=== PATIENT | male | born 1960 | race Caucasian/White ===

== ENCOUNTER 2021-06-15 02:06 | Day surgery (SDC) | payer OTHER, SELFPAY ==
[2021-06-07 13:46] VITALS: BMI 29.1
[2021-06-15 06:45] VITALS: BP 144/97; PULSE 82; RESP 18; TEMP 36.4; O2SAT 98; BMI 28.5
[2021-06-15] MEDS: LACTATED RINGERS 1,000 ML 150 ML IV CONT (07:06)
--- NOTE | 2021-06-15 07:20 | WPDGICN ---
Assessment and Plan Assessment and plan (1) Screen for colon cancer: Code(s): Z12.11 - Encounter for screening for malignant neoplasm of colon Status: Acute Assessment and Plan: Patient presents for screening colonoscopy appears to be at average risk for colon polyps. GI Consult Note Consult date/time: 06/15/21 07:20 HPI: Jose Cruz Quijano is a 60 year old male Presents for screening colonoscopy. Patient reports his current weight appetite bowel movements are normal. He denies abdominal pain. He has had no blood in his stools. Bowel habits are regular. Family history is noncontributory. Patient desires neoplasia screening. Review of Systems Review of Systems: All systems reviewed & are unremarkable except as noted in HPI and below PMFSH Past Medical History Medical History BMI 30.0-30.9,adult Hypomagnesemia Iliotibial band syndrome Screen for colon cancer Screening for lipid disorders Screening for prostate cancer Surgical History Surgical History History of foot surgery Social History Social History Smoking status: Never smoker Second hand tobacco smoke exposure: No Alcohol intake: current Drinks per week: 2 Substance use type: does not use Living arrangements: with family Spiritual care concerns: No Meds Home Medications and Allergies Home Medications Medication Instructions Recorded Confirmed Type lisinopril 20 1 tablet PO BID #180 tablet 01/06/21 06/15/21 Rx mg-hydrochlorothiazide 25 mg tablet lorazepam 1 mg tablet 1 mg PO DAILY PRN 30 Days #30 01/26/21 06/15/21 Rx tablet omeprazole 40 mg capsule,delayed 40 mg PO DAILY 90 Days #90 cap 01/26/21 06/15/21 Rx release pregabalin 100 mg capsule 100 mg PO BID 90 Days #180 cap 01/26/21 06/15/21 Rx meloxicam 15 mg tablet 15 mg PO DAILY #30 tablet 06/06/21 06/15/21 Rx Allergies Allergy/AdvReac Type Severity Reaction Status Date / Time No Known Allergies Allergy Verified 06/15/21 06:53 Vital Signs Vital Signs - 24 hr 06/15/21 06:45 Temperature 97.5 F L Pulse Rate 82 Respiratory Rate 18 Blood Pressure 144/97 H Pulse Oximetry 98 Exam Narrative: Physical exam reveals patient be alert. Vital signs stable. HEENT exam is unremarkable. Patient is anicteric. Lungs are clear to auscultation and percussion. Heart is without murmur or extra sounds. Abdominal exam bowel sounds are present soft nontender with no hepatosplenomegaly. Digital external rectal exam is normal.
--- NOTE | 2021-06-15 08:02 | WPDANESEPPF ---
Anes - Initial Pre Proc Eval Procedure: Operation Date: 06/15/21 08:00 Proposed Procedures p Screening Colonoscopy - Denis Abdi MD Date/Time: 06/15/21 08:02 Surgeon: Denis Abdi MD Pre Op Diagnosis: neoplasm screening Patient Data Age: 60 Gender: M Height: 1.83 m Weight: 95.3 kg Last Vital Signs Temp 97.5 F L 06/15/21 06:45 Pulse 82 06/15/21 06:45 Resp 18 06/15/21 06:45 BP 144/97 H 06/15/21 06:45 Pulse Ox 98 06/15/21 06:45 Allergies Allergy/AdvReac Type Severity Reaction Status Date / Time No Known Allergies Allergy Verified 06/15/21 06:53 Home Medications Medication Instructions Recorded Confirmed Type lisinopril 20 1 tablet PO BID #180 tablet 01/06/21 06/15/21 Rx mg-hydrochlorothiazide 25 mg tablet lorazepam 1 mg tablet 1 mg PO DAILY PRN 30 Days #30 01/26/21 06/15/21 Rx tablet omeprazole 40 mg capsule,delayed 40 mg PO DAILY 90 Days #90 cap 01/26/21 06/15/21 Rx release pregabalin 100 mg capsule 100 mg PO BID 90 Days #180 cap 01/26/21 06/15/21 Rx meloxicam 15 mg tablet 15 mg PO DAILY #30 tablet 06/06/21 06/15/21 Rx Patient hx anesthesia problems: none Family hx anesthesia problems: none PMFSH Past Medical History Medical History BMI 30.0-30.9,adult Hypomagnesemia Iliotibial band syndrome Screen for colon cancer Screening for lipid disorders Screening for prostate cancer Surgical History Surgical History History of foot surgery Social History Social History Smoking status: Never smoker Second hand tobacco smoke exposure: No Alcohol intake: current Drinks per week: 2 Substance use type: does not use Living arrangements: with family Spiritual care concerns: No Anes - Eval Final PreProcedure Day of Procedure 06/15/21 08:02 Patient weight: overweight Heart: regular rate and rhythm Lungs: clear to auscultation Airway: Mallampati scale class II Neurological: alert and oriented Last oral intake: >/= 8 hours ASA classification: II Emergent: no Anesthetic plan: proceed Anesthesia type and monitoring: general GIVS and standard monitoring Informed Consent: The patient's anesthetic plan and its attendant risks and benefits were discussed with the patient/family/POA. Questions were solicited and answers provided to the satisfaction of the patient/family/POA.
[2021-06-15] MEDS: SIMETHICONE ORAL SUSPENSION 20 MG/0.3 ML 30 ML BOTTLE 0.6 ML IRRIGATION (08:10)
[2021-06-15 08:18] VITALS: BP 123/83; PULSE 82; RESP 19; O2SAT 100
[2021-06-15 08:28] VITALS: BP 118/84; PULSE 83; RESP 19; O2SAT 100
[2021-06-15 08:38] VITALS: BP 123/87; PULSE 83; RESP 19; O2SAT 100
== END 2021-06-15 08:50 | disposition home or self-care (01) ==
PROVIDERS: PCP Family Medicine; Visit Provider Internal Medicine Gastroenterology
PROC: 0DJD8ZZ Inspection of Lower Intestinal Tract, Via Natural or Artificial Opening Endoscopic (ICD-10-PCS; CPT 45378; principal; 2021-06-15 08:00)
DX: Z12.11 Encounter for screening for malignant neoplasm of colon (principal); K64.8 Other hemorrhoids; M76.30 Iliotibial band syndrome, unspecified leg
CPT/HCPCS: 45378; J2001; J2704; J7120

== ENCOUNTER → 2021-11-09 10:56 | Outpatient (REF) | payer OTHER, SELFPAY | LOC: ANHLAB 10:56 | PROVIDERS: PCP Family Medicine; Visit Provider Nurse Practitioner | DX: L57.0 Actinic keratosis (principal) | CPT/HCPCS: 88305 ==

== ENCOUNTER → 2021-12-13 10:04 | Outpatient (CLI) | payer OTHER, SELFPAY ==
--- NOTE | ~2021-12-13 | XR_ITS ---
EXAMINATION: XR chest 2V DATE: 12/13/2021 10:23 INDICATION: Cough, unspecified. TECHNIQUE: Frontal and lateral views of the chest were obtained on 3 radiographs. COMPARISON: None. FINDINGS: The chest demonstrates clear lungs without pneumonia, pleural effusion, or pneumothorax. Th e heart size is normal. IMPRESSION: 1. No acute cardiopulmonary disease. Reviewed, dictated and finalized at location A. SORTER
== END ==
PROVIDERS: Visit Provider Nurse Practitioner Family
DX: R05.9 Cough, unspecified (principal)
CPT/HCPCS: 71046

== ENCOUNTER → 2022-02-01 09:44 | Outpatient (CLI) | payer OTHER, SELFPAY ==
--- NOTE | ~2022-02-01 | MR_ITS ---
EXAMINATION: MR lumbar spine wo con EXAM DATE: 02/01/2022 10:14 INDICATION: Radiculopathy. Low back pain and right leg numbness. TECHNIQUE: Multi-sequential, multiplanar MR images of the lumbar spine were obtained without contrast . Sagittal T1, T2, T2 fat saturation images. Axial T2 weighted images. Comparison is made to prior examination from 2017. Correlation also made to a MRI abdomen examination from 2003. FINDINGS: On the localizing sequence there is evidence of a large lobulated right liver lobe mass, li ayana the same mass on 2004 MRI, report of which is not available. There have been significant improve ment in scan technique, but prior study demonstrates what appears to be a homogeneous enhancement exc ept for central scar, suggesting focal nodular hyperplasia. This does not appear appreciably changed compared to that study which is consistent with benign histology. There is mild to moderate disc disease L2-3 and L4-5. There is 4 mm anterolisthesis L4 on L5. The manasa tebral bodies are otherwise aligned. Mild disc disease T11-L2. The conus medullaris terminates at the L1/2 level and has normal signal intensity and morphology. There are no focal marrow signal abnorma lities suspicious for malignancy or acute fracture. Level by level evaluation: T12-L1: Tiny central disc protrusion. Facet arthropathy: Mild. Neural foraminal stenosis: No stenosis. Central canal stenosis: No stenosis. L1-L2: Disc does not extend beyond the endplate margin. Facet arthropathy: Mild to moderate. Neural foraminal stenosis: No stenosis. Central canal stenosis: No stenosis. L2-L3: There is a moderate diffuse disc bulge. Facet arthropathy: Moderate. Neural foraminal stenosis: Moderate left, mild to moderate right. Central canal stenosis: Moderate. L3-L4: There is a mild diffuse disc bulge. Facet arthropathy: Moderate. Neural foraminal stenosis: Mild to moderate bilateral. Central canal stenosis: Mild. L4-L5: There is a moderate diffuse disc bulge. Facet arthropathy: Severe . Ligamentum flavum enlargement. Neural foraminal stenosis: Moderate to severe bilateral, right more than left. Central canal stenosis: Moderate (more than L2-3). L5-S1: There is a mild diffuse disc bulge. Facet arthropathy: Moderate. Neural foraminal stenosis: Mild to moderate left, mild right. Central canal stenosis: Mild. IMPRESSION: 1. L4-5 rate 1 anterolisthesis, moderate to severe right greater than left neural foraminal stenosis . Moderate central canal stenosis. 2. Large right liver lobe mass likely benign and unchanged compared to 2003. Reviewed, dictated and finalized at location A. IMPRESSION: 1. L4-5 rate 1 anterolisthesis, moderate to severe right greater than left sergo ral foraminal stenosis. Moderate central canal stenosis. 2. Large right liver lobe mass likely benign and unchanged compared to 2003.
== END ==
PROVIDERS: PCP Family Medicine; Visit Provider Nurse Practitioner Family
DX: M47.25 Other spondylosis with radiculopathy, thoracolumbar region (principal); M48.05 Spinal stenosis, thoracolumbar region; M47.817 Spondylosis without myelopathy or radiculopathy, lumbosacral region; M48.07 Spinal stenosis, lumbosacral region
CPT/HCPCS: 72148

== ENCOUNTER → 2022-03-10 10:23 | Outpatient (CLI) | payer OTHER, SELFPAY ==
--- NOTE | ~2022-03-10 | XR_ITS ---
XR knee RT 3V DATE: 03/10/2022 10:40 INDICATION: Right knee pain TECHNIQUE: AP, lateral and sunrise views COMPARISON: None FINDINGS: There is slight periarticular spurring of the patella consistent with mild osteoarthritis. Medial and lateral compartment joint spaces are well preserved. No fracture or dislocation or joint e ffusion. No radiopaque intra-articular loose body or chondrocalcinosis. No periosteal reaction or bon e destruction. IMPRESSION: Mild patellofemoral osteoarthritis Reviewed, dictated and finalized at location B.
== END ==
PROVIDERS: PCP Family Medicine; Visit Provider Nurse Practitioner Family
DX: M17.11 Unilateral primary osteoarthritis, right knee (principal)
CPT/HCPCS: 73562

== ENCOUNTER → 2022-03-14 09:32 | Outpatient (CLI) | payer OTHER, SELFPAY ==
--- NOTE | ~2022-03-14 | XR_ITS ---
EXAMINATION: XR shoulder RT min 2V DATE: 03/14/2022 10:19 INDICATION: Right shoulder pain TECHNIQUE: AP internally and externally rotated, AP oblique externally rotated and axillary views of the right shoulder were obtained. COMPARISON: None FINDINGS: Normal alignment at the right shoulder. No fracture. Mild glenohumeral osteoarthritis with mild nonu niform joint space narrowing and small marginal osteophytes about the humeral head. Moderate acromioc lavicular osteoarthritis. Soft tissues are unremarkable. Right lung is clear. IMPRESSION: Mild right glenohumeral and moderate acromioclavicular osteoarthritis. Reviewed, dictated and finalized at location A.
== END ==
PROVIDERS: PCP Family Medicine; Visit Provider Nurse Practitioner Family
DX: M19.011 Primary osteoarthritis, right shoulder (principal)
CPT/HCPCS: 73030

== ENCOUNTER 2022-03-24 10:39 | Outpatient (CLI) | payer OTHER, SELFPAY ==
--- NOTE | ~2022-03-24 | MR_ITS ---
EXAMINATION: MR knee RT wo con DATE: 03/24/2022 11:22 INDICATION: Chronic instability and lateral sided right knee pain post injury 2 weeks prior TECHNIQUE: Magnetic resonance imaging (MRI) of the right knee was performed without intravenous contr ast. Sequences included coronal PD-weighted FSE, coronal PD-weighted FS FSE, sagittal T2-weighted FS E, sagittal PD-weighted FS FSE and axial PD weighted fat saturated FSE. COMPARISON: None. FINDINGS: Medial compartment: Complex tear at the posterior body and posterior horn of the medial meniscus which includes both radi al and longitudinal horizontal tear planes. Shallow chondral ulceration and partial-thickness fissuri ng along the lateral half of the anterior to central weightbearing medial femoral condyle. Cartilage at the medial tibial plateau is normal. Lateral compartment: Lateral meniscus is normal. Articular cartilage is normal. Patellofemoral compartment: Chondral fissuring involving up to 50% above the cartilage thickness at the medial patellar facet, ap ical ridge and medial side of the lateral facet. Shallow chondral ulceration at the caudal half of th e trochlear groove. Deep chondral fissuring without degenerative subchondral changes at the inferior aspect of the medial trochlea. Ligaments and tendons: Anterior and posterior cruciate ligaments are normal. There is mild thickening of the proximal medial collateral ligament without increased fluid signal consistent with scarring related to chronic sprai n. The fibular collateral ligament is normal. Small heterotopic ossicle at the distal as previously o therwise normal patellar tendon which could be sequela of either chronic enthesopathy or total to Osg ood-Schlatter's disease. Quadriceps tendon is normal. The visualized medial and lateral hamstring ten dons as well as the iliotibial band are normal. Fluid: Physiologic amount of fluid in the joint space. No loose osteochondral bodies identified. Nonloculate d fluid tracking along the posterior margin of the medial head of the gastrocnemius muscle likely monica ginating from a ruptured Abdul's cyst. Osseous/other: Normal marrow signal. No fracture or pathologic marrow replacing process. IMPRESSION: 1. Complex medial meniscal tear. 2. Mild osteoarthritis with moderate grade chondromalacia in both the medial and patellofemoral aleah rtments. 3. Likely ruptured Abdul's cyst with nonloculated fluid tracking caudally along the periphery of the medial head of the gastrocnemius. Reviewed, dictated and finalized at location B. IMPRESSION: 1. Complex medial meniscal tear. 2. Mild osteoarthritis with moderate grade chondromalacia in both the medial an d patellofemoral compartments. 3. Likely ruptured Abdul's cyst with nonloculated fluid tracking caudally along the periphery of the medial head of the gastrocnemius.
== END 2022-03-24 10:40 | disposition home or self-care (01) ==
PROVIDERS: PCP Family Medicine; Visit Provider Nurse Practitioner Family
DX: S80.911A Unspecified superficial injury of right knee, initial encounter (principal); M23.51 Chronic instability of knee, right knee; S83.241A Other tear of medial meniscus, current injury, right knee, initial encounter; M17.11 Unilateral primary osteoarthritis, right knee; M94.261 Chondromalacia, right knee
CPT/HCPCS: 73721

== ENCOUNTER → 2022-05-31 09:34 | Outpatient (CLI) | payer OTHER, SELFPAY ==
--- NOTE | ~2022-05-31 | XR_ITS ---
EXAMINATION: XR knee LT 2V DATE: 05/31/2022 10:01 INDICATION: Left knee pain. TECHNIQUE: 2 views of left knee were obtained. COMPARISON: None. FINDINGS: Bone alignment is normal. No fracture. There is mild tricompartmental osteoarthritis charac terized by tiny osteophytes. No joint space narrowing. No knee joint effusion. IMPRESSION: 1. Mild left knee osteoarthritis. Reviewed, dictated and finalized at location A.
== END ==
PROVIDERS: PCP Family Medicine; Visit Provider Nurse Practitioner Family
DX: M17.12 Unilateral primary osteoarthritis, left knee (principal)
CPT/HCPCS: 73560

== ENCOUNTER → 2022-07-29 08:34 | Outpatient (CLI) | payer OTHER, SELFPAY ==
--- NOTE | ~2022-07-29 | MR_ITS ---
EXAMINATION: MR knee LT wo con DATE: 07/29/2022 09:10 INDICATION: Left knee pain TECHNIQUE: Magnetic resonance imaging (MRI) of the left knee was performed without intravenous contra st. Sequences included coronal PD-weighted FSE, coronal PD-weighted FS FSE, sagittal T2-weighted FSE , sagittal PD-weighted FS FSE and axial PD weighted fat saturated FSE. COMPARISON: None. FINDINGS: Medial compartment: Medial meniscus is normal. Partial thickness chondral fissuring involving up to 50% the cartilage thi ckness at the lateral side of the anterior weightbearing medial femoral condyle. Lateral compartment: Lateral meniscus is normal. Cartilage signal heterogeneity suggesting partial thickness fissuring may ng the posterior margin of the lateral tibial plateau. Remaining cartilage appears normal. Patellofemoral compartment: Deep chondral fissuring without degenerative subchondral changes involving the medial patellar facet and apical ridge. Cortical irregularity of a small central osteophyte along a sagittally oriented reg ion of deep chondral ulceration extending craniocaudally across the central aspect of the lateral tro chlea. Ligaments and tendons: Anterior and posterior cruciate ligaments are normal. The medial collateral ligament and fibular kari ateral ligament complex are normal. The extensor mechanism is normal. The visualized medial and later al hamstring tendons as well as the iliotibial band are normal. Fluid: Physiologic amount of fluid in the joint space. No loose osteochondral bodies identified. Osseous/other: Bone alignment is normal. No fracture or pathologic marrow replacing process. Small focus of suscepti bility artifact along the skin surface at the anteromedial aspect of the knee. IMPRESSION: 1. High-grade chondromalacia along the lateral trochlea. Less severe and moderate grade chondromalaci a at the patella, anterior weightbearing medial femoral condyle and posterior lateral tibial plateau. Reviewed, dictated and finalized at location A. IMPRESSION: 1. High-grade chondromalacia along the lateral trochlea. Less severe and modera te grade chondromalacia at the patella, anterior weightbearing medial femoral c ondyle and posterior lateral tibial plateau.
== END ==
PROVIDERS: PCP Family Medicine; Visit Provider Nurse Practitioner Family
DX: M25.562 Pain in left knee (principal); M94.262 Chondromalacia, left knee
CPT/HCPCS: 73721

== ENCOUNTER 2022-08-27 10:48 | Emergency (ER) | payer OTHER, SELFPAY ==
[2022-08-27 11:00] VITALS: BP 139/91; PULSE 80; RESP 18; TEMP 37; O2SAT 100; O2SAT 99
--- NOTE | 2022-08-27 11:06 | ED.ALLEREA ---
HPI - Allergic Reaction General Chief complaint: Allergic Reaction Stated complaint: allergic reaction Time Seen by Provider: 08/27/22 10:50 History of Present Illness HPI narrative: 62-year-old male history of asthma, hypertension, GERD, anxiety presents to the emergency room after being stung by an insect on his left cheek. Patient states that he began experiencing difficulty swallowing and shortness of breath. Prior to arrival in the ER, patient took a Benadryl and Claritin and states his symptoms began to resolve. Related Data Allergies Allergy/AdvReac Type Severity Reaction Status Date / Time No Known Allergies Allergy Verified 08/27/22 11:35 Review of Systems Review of Systems: CONSTITUTIONAL: Denies fever, chills, or sweats. EYES: Denies visual changes, redness, or discharge. ENT: Denies rhinorrhea, congestion, sore throat, or otalgia. CARDIOVASCULAR: Denies chest pain, palpitations, or edema. RESPIRATORY: Reports dyspnea. GASTROINTESTINAL: Denies abdominal pain, nausea, vomiting, or diarrhea. GENITOURINARY: Denies dysuria or hematuria. SKIN: Reports rash or itching. MUSCULOSKELETAL: Denies back pain, joint pain, or myalgia. NEUROLOGIC: Denies headache, numbness, dizziness, or weakness. PSYCHIATRIC: Denies anxiety or depression. [facility] Past Medical History Medical History Actinic keratosis BMI 29.0-29.9,adult BMI 30.0-30.9,adult Bronchitis Chondromalacia, knee Chronic instability of knee, right knee Cough History of SCC (squamous cell carcinoma) of skin HTN (hypertension) Hypomagnesemia Iliotibial band syndrome Left knee DJD Leukocytopenia Medial meniscus tear Right knee injury Right knee pain Screen for colon cancer Screening for lipid disorders Screening for prostate cancer Sebaceous hyperplasia Skin cancer screening Unspecified superficial injury of right knee, initial encounter Surgical History Surgical History History of foot surgery Family History Family History Father Diabetes mellitus Mother COPD (chronic obstructive pulmonary disease) Sibling No problems noted. 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 HEAD: Normocephalic, atraumatic. EYES: Conjunctivae normal, PERRLA and EOMI. ENT: External nose normal, Nares clear, no rhinorrhea or epistaxis. Mucous membranes moist. Oropharynx without tonsillar hypertrophy exudate or other lesions. NECK: Supple. CHEST: Inspiratory wheezing HEART: Regular rate and rhythm. No murmur heard. Normal peripheral pulses. EXTREMITIES: Normal range of motion. No edema. No clubbing or cyanosis SKIN: Single puncture rhiannon to left cheek with surrounding mild erythema NEURO: No focal deficits. Alert and oriented x3. MAEW. CN's II-XI intact bilaterally, normal gait PSYCH: Cooperative. Normal mood and affect. Course Vital Signs Vital signs: Vital Signs Temperature 37.0 C 08/27/22 11:00 Pulse Rate 80 08/27/22 11:00 Respiratory Rate 18 08/27/22 11:00 Blood Pressure 139/91 H 08/27/22 11:00 Pulse Oximetry 100 08/27/22 11:00 Oxygen Delivery Room Air 08/27/22 11:00 Temperature 37.0 C 08/27/22 11:00 Pulse Rate 81 08/27/22 11:42 Respiratory Rate 18 08/27/22 11:42 Blood Pressure 139/91 H 08/27/22 11
[2022-08-27 11:15] VITALS: PULSE 80; RESP 18
[2022-08-27] MEDS: ALBUTEROL SULFATE NEB 2.5 MG/3 ML INH INHALATION (11:16)
[2022-08-27] MEDS: IPRATROPIUM BR 0.02% INH SOLN 0.5 MG/2.5 ML VIAL INHALATION (11:16)
[2022-08-27] MEDS: methylPREDNISolone SOD SUCC 125 MG VIAL IV PUSH (11:18)
[2022-08-27] MEDS: FAMOTIDINE 20 MG/2 ML VIAL IV PUSH (11:19)
[2022-08-27] MEDS: diphenhydrAMINE HCl INJ 50 MG/ML VIAL 25 MG IV PUSH (11:19)
[2022-08-27 11:26] VITALS: PULSE 82; RESP 18
[2022-08-27 11:42] VITALS: PULSE 81; RESP 18; O2SAT 100
[2022-08-27 12:05] VITALS: BP 134/89; PULSE 82; RESP 18; O2SAT 99
== END 2022-08-27 12:05 | disposition home or self-care (01) ==
PROVIDERS: Emergency Provider Nurse Practitioner Family; PCP Family Medicine
DX: T63.481A Toxic effect of venom of other arthropod, accidental (unintentional), initial encounter (principal); J45.909 Unspecified asthma, uncomplicated; I10 Essential (primary) hypertension; K21.9 Gastro-esophageal reflux disease without esophagitis; Z85.828 Personal history of other malignant neoplasm of skin; M17.12 Unilateral primary osteoarthritis, left knee
CPT/HCPCS: 94640; 96374; 96375; 99284; J1200; J2930

== ENCOUNTER 2022-10-11 11:51 | Emergency (ER) | payer OTHER, SELFPAY ==
[2022-10-11] VITALS (8 sets, daily range): BP systolic 147–178; BP diastolic 94–102; PULSE 82–97; RESP 13–18; TEMP 36.4; O2SAT 99–100
--- NOTE | ~2022-10-11 | XR_ITS ---
Clinical Indication: Chest pain PA and lateral views of the chest: Comparison: 12/13/2021 Findings: The lungs are clear, without evidence of focal consolidation or pleural effusion. Cardiome diastinal silhouette is within normal limits. Bones and soft tissues are unremarkable. Impression: Normal chest. Reviewed, dictated and finalized at location [] [facility] Impression: Normal chest.
--- NOTE | 2022-10-11 16:08 | ECG_ITS ---
Measurements Intervals [place] Rate: 85 P: 30 FL: 167 QRS: 4 QRSD: 81 T: 30 QT: 366 QTc: 436 Interpretive Statements SINUS RHYTHM COMPARED TO ECG 11/30/2018 09:46:45 NO SIGNIFICANT CHANGES Electronically Signed On 10-11-2022 16:39:51 [employer] by Nataly Washington M.D.
[2022-10-11 17:21] LABS: Basophils Percent Auto 0.6 % (0.2-1.2); Eosinophils Absolute Auto 0.1 K/mm3 (0-0.3); Eosinophils Percent Auto 1.3 % (0-4.4); Hematocrit 42.8 % (42.0-52.0); Immature Granulocyte Absolute 0.03 K/mm3 (0.00-0.031); Immature Granulocyte Percent A 0.6 % (0-0.5); Lymphocytes Absolute Auto 1.31 K/mm3 (0.9-3.2); Lymphocytes Percent Auto 27.3 % (18.3-44.2); Mean Corpuscular Hemoglobin 30.1 pg (26-34); Mean Corpuscular Volume 85.9 fl (80-100); Monocytes Absolute Auto 0.4 K/mm3 (0.1-0.6); Monocytes Percent Auto 8.6 % (2.6-8.5); Neutrophils Percent Auto 61.6 % (45.5-73.1); Platelet Count Result 209 k/mm3 (150-375); Red Blood Count 4.98 M/mm3 (4.6-6.20); Red Cell Distribution Width 12.3 % (11.5-14.5); White Blood Count 4.8 K/mm3 (4.5-10.0)
[2022-10-11 17:33] LABS: Alanine Aminotransferase 32 U/L (6-50); Albumin Level 4.9 g/dL (3.5-5.1); Alkaline Phosphatase 76 U/L (38-126); Anion Gap 9 mmol/L (8-16); Aspartate Amino Transferase 34 U/L (17-59); Bilirubin,Total 1.3 mg/dL (0.2-1.3); Blood Urea Nitrogen 16 mg/dL (9-20); Calcium 9.5 mg/dL (8.4-10.2); Carbon Dioxide 28 mmol/L (22-30); Chloride 102 mmol/L (98-107); Estimated CRCL calculation 90 ml/min; Estimated Glomerular Filt Rate > 60; Glucose 101 mg/dL (65-110); Potassium 3.5 mmol/L (3.4-5.0); Sodium 139 mmol/L (137-145)
[2022-10-11 17:37] LABS: INR 1.1; Partial Thromboplastin Time 25.3 SECONDS (22.3-36.8); Prothrombin Time 13.6 Seconds (11.1-14.7)
[2022-10-11 17:45] LABS: Troponin I < 0.012 ng/mL (0.000-0.034)
--- NOTE | 2022-10-11 18:04 | ED.ANXIETY ---
HPI - Anxiety General Chief Complaint: Anxiety Stated Complaint: panic attack - hx of anxiety Time Seen by Provider: 10/11/22 15:59 History of Present Illness HPI narrative: Patient is a 62-year-old male who presents ER with chest pain and anxiety attack. Patient reports he is going to [facility] to get labs drawn due to an annual physical and hypertension. He started getting anxious on the way there. His anxiety increased he developed left-sided chest pain that was nonradiating. No history of heart disease but does want to have his heart evaluated. No diaphoresis or nausea. No exertional component. Symptoms resolved after taking Ativan. Related Data Allergies Allergy/AdvReac Type Severity Reaction Status Date / Time No Known Allergies Allergy Verified 10/11/22 11:52 Review of Systems Review of Systems: All systems reviewed & are unremarkable except as noted in HPI and below Constitutional: Constitutional: Denies chills, Denies fatigue and Denies fever(s) ENT: Denies nasal congestion and Denies sore throat Cardiovascular: Cardiovascular: Reports chest pain, Denies rapid heart rate and Denies radiating jaw, neck or arm pain Respiratory: Respiratory: Denies cough, Denies dyspnea and Denies wheezing Gastrointestinal: Gastrointestinal: Denies abdominal pain, Denies nausea and Denies vomiting Psychiatric: Psychiatric: Reports anxiety PMFSH Past Medical History Medical History Actinic keratosis BMI 29.0-29.9,adult BMI 30.0-30.9,adult Bronchitis Chondromalacia, knee Chronic instability of knee, right knee Cough History of SCC (squamous cell carcinoma) of skin HTN (hypertension) Hypomagnesemia Iliotibial band syndrome Left knee DJD Leukocytopenia Medial meniscus tear Right knee injury Right knee pain Screen for colon cancer Screening for lipid disorders Screening for prostate cancer Sebaceous hyperplasia Skin cancer screening Unspecified superficial injury of right knee, initial encounter Surgical History Surgical History History of foot surgery Family History Family History (Updated 10/10/22 @ 10:55 by Yenny Bailey CMA) Father Diabetes mellitus Mother COPD (chronic obstructive pulmonary disease) Sibling Sleep apnea Other Hypertension Social History Social History (Updated 10/10/22 @ 10:55 by Yenny Bailey CMA) Smoking status: Never smoker Second hand tobacco smoke exposure: Yes Alcohol intake: current Drinks per week: 4 Alcohol use details: Socially Substance use: never Substance use type: does not use Lack of Transportation: No Lack of Food: Never True Current Housing: I Have Housing Concerned About Future Housing: No Difficulty Paying Gas/Electric Bills: No Difficulty Paying for Meds: No Currently Unemployed: No Education: Master's Degree or Higher Difficulty w/ Childcare or Family Care: No 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 HEAD: Normocephalic, atraumatic. ENT: Mucous membranes moist. CHEST: Clear to auscultation. No respiratory distress. HEART: Regular rate and rhythm. Normal peripheral pulses. ABDOMEN: Soft, nontender, nondistended. EXTREMITIES: Normal range of motion. No edema. SKIN: Warm, dry, no rash. NEURO: Alert and oriented x3. PSYCH: Normal mood and affect. Course Course Emergency Course: Informed of results. Resting comfortably. Discharge home. EKG/troponin/chest x-ray normal. Symptoms felt to be related to anxiety. Vital Signs Vital signs: Vital Signs Temperature 97.6 F 10/11/22 11:57 Pulse Rate 82 10/11/22 11:57 Respiratory Rate 18 10/11/22 11:57 Blood Pressure 178/100
== END 2022-10-11 18:51 | disposition home or self-care (01) ==
PROVIDERS: Emergency Provider Emergency Medicine; PCP Family Medicine
DX: F41.1 Generalized anxiety disorder (principal); F17.210 Nicotine dependence, cigarettes, uncomplicated; I10 Essential (primary) hypertension
CPT/HCPCS: 36415; 71046; 80053; 84484; 85025; 85610; 85730; 93005; 99284

== ENCOUNTER 2022-11-15 13:42 | Outpatient (NON) | payer OTHER, SELFPAY | END 2022-11-15 13:43 | disposition home or self-care (01) | PROVIDERS: PCP Family Medicine; Visit Provider Nurse Practitioner | DX: L81.4 Other melanin hyperpigmentation (principal); L82.1 Other seborrheic keratosis | CPT/HCPCS: 88305 ==

== ENCOUNTER 2023-01-10 08:35 | Outpatient (CLI) | payer OTHER, SELFPAY ==
--- NOTE | 2023-01-12 17:53 | WPDHOMESLEEP ---
Sleep Study - Home Unattended Date of Study: 01/10/23 Ordering Provider: Dimitrios Tan MD Interpreting Provider: Tiana Samano MD Home Sleep Study Type: Watch PAT Height: 1.83 m Weight: 96.162 kg Body Mass Index: 28.7 Neck Circumference (inches): 16.5 [place]: 4 Reason for Sleep Study Non-restorative sleep, frequent night time awakenings. Sleep History Jose Cruz De La Paz is a 62-year-old man who complains that he cannot get a full night of sleep. Several years ago he had a sleep study that showed obstructive sleep apnea. He tried PAP therapy but did not like the hoses and other equipment so he stopped using it. Two of his brothers use CPAP. He rarely awakens from sleep feeling short of breath. He frequently awakens at night with heartburn, belching or coughing. He occasionally snores. He rarely snores loudly enough that others complain. He rarely has trouble sleeping with a cold. He does not wake up gasping for breath at night. He rarely has breathing problems at night observed by others. He rarely sweats excessively at night. He does not notice his heart pounding or beating irregularly at night. He does not fall asleep during the day, does not fall asleep involuntarily or while driving. He does not have loss of muscle tone with strong emotion. He does not have daytime difficulties due to excessive sleepiness. 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 He does not have paralysis on waking or falling asleep. He rarely has vivid dreamlike scenes on waking or falling asleep. He does not feel afraid to go to sleep. He does not have nightmares. He occasionally remembers his dreams. He occasionally has racing thoughts. He rarely feels sad or depressed. He occasionally has anxiety. He rarely has muscular tension. He does not notice parts of his body jerking. He does not kick at night. He occasionally has crawling aching feelings in his legs. He occasionally has leg pain at night. Does not have morning jaw pain. He rarely grinds his teeth during sleep. He occasionally is bothered by pain during the day. He frequently is awakened by pain at night. He frequently wakes up feeling stiff in the morning. He occasionally wakes up with sore achy muscles and pain in the neck and spine. He takes sedatives. He has insomnia. Normal bedtime is 10:00 to 11:00 pm, taking 30-60 minutes to fall asleep. He typically wakes 2-3 times at night for 20-30 minutes. He will use the bathroom, takes melatonin or Advil. His normal wake up time is between 6 and 7:30 a.m.. He keeps the same schedule on weekends. He generally does not take naps in the afternoon or evening. A short nap lasting 10 or 15 minutes may be refreshing. He is usually drowsy for an hour after waking. He feels better in the morning compared to other times of day. Habits: Never smoked tobacco. Caffeine 2-3 cups in morning. Alcohol once a week. No recreational substances. [facility] Past Medical History Medical History (Updated 01/12/23 @ 18:57 by Tiana Samano MD) Actinic keratosis BMI 29.0-29.9,adult BMI 30.0-30.9,adult Bronchitis Chondromalacia, knee Chronic instability of knee, right knee Cough Degenerative joint disease of knee History of SCC (squamous cell carcinoma) of skin HTN (hypertension) Hypomagnesemia Iliotibial band syndrome Left knee DJD Leukocytopenia Medial meniscus tear Obstructive sleep apnea Right knee injury Right knee pain Screen for colon cancer Screening for lipid disorders Screening for prostate cancer Sebaceous hyperplasia Skin cancer screening Unspecified superficial injury of right knee, initial encounter Surgical History Surgical History History of foot surgery Family History Family History Father Diabetes mellitus Mother COPD (chronic obstructive pulmonary disease) Sibling Sleep apnea Other Hy
[2023-01-12 19:04] VITALS: BMI 28.7
== END 2023-01-11 09:28 | disposition home or self-care (01) ==
LOC: ANHCSM 08:36
PROVIDERS: PCP Family Medicine; Visit Provider Family Medicine
DX: G47.33 Obstructive sleep apnea (adult) (pediatric) (principal)
CPT/HCPCS: 95800

== ENCOUNTER 2023-06-28 01:05 | Day surgery (SDC) | payer OTHER, SELFPAY ==
--- NOTE | 2023-06-23 11:35 | PC.NURSE ---
Report to the Outpatient Waiting Room, entrance under the green pavilion located off [facility], at time __1130 on date _06/28/23 . Planned Procedure Time: __1330 . Time changes happen often and if your time is changed the preop area will call you the afternoon before. - You and your visitor will be asked to self-screen and do not enter if you have any COVID symptoms. - A mask is optional within the hospital at this time. Patients may have clear liquids (water, carbonated beverages, clear teas, apple juice) until 3 hours prior to surgery with a maximum of 20 ounces. - No food from midnight until time of surgery - Infants may have breast milk until 4 hours before surgery, infant formula 6 hours prior to surgery. - Children will be allowed to drink immediately following surgery. If applicable, please bring a bottle or sippy cup to assist with drinking. Juice, water, soda, and popsicles are readily available. For infants on formula, please bring formula the day of surgery. Pacifiers are allowed. Take the following medications with a SIP of water the morning of surgery: _BUSPIRONE,ALBUTEROL INHALER IF NEEDED DO NOT STOP ANY OF YOUR OTHER PRESCRIPTION MEDICATIONS PRIOR TO SURGERY ?EXCEPT THE FOLLOWING Medications to discontinue per physician ___PT STATES HOLD IBUPROFEN 7 DAYS PRE OP PER DR MADDOX.LAST DOSE 06/20/23. ALL VITAMINS AND SUPPLEMENTS 3 DAYS PRE OP.LAST DOSE 06/24/[address] MADDOX Please no make-up, nail syriac, hairspray, perfume, deodorant, or body powder the day of surgery. No jewelry (including any body piercings) or valuables the day of surgery, leave them at home. Please take a shower or bath the night before, or the morning of, surgery with an antibacterial soap. Wear comfortable, loose fitting clothing. Children are encouraged to wear pajamas. - Jewelry must be removed prior to entering the operating room. Rings and piercings that are not removed may be cut off. - The hospital will not accept responsibility for valuables. - Please leave all valuables, including medications, at home the day of surgery. If you are going home after surgery, a licensed skidder driver must drive you home. - NO public transportation without another adult if you receive anesthesia. - We recommend that an adult stay with you for 24 hours following discharge. - We also recommend that you do not drive, make important decision, drink alcoholic beverages, or take any drugs that were not prescribed by your health care provider for at least 24 hours after your discharge time. For Pediatric surgeries, we recommend two adults accompany the child home. Follow any additional instructions given to you from your surgeon. If you or anyone in your household have experienced Covid symptoms in the past week, please notify your surgeon or the nurse liaison at the phone number below for possible testing. Telephone instructions given to ___PATIENT and asked if any additional questions and then verbalized understanding. Patient advised to call surgeon office or pre surgery nurse liaison [phone] if any additional questions.
[2023-06-23 11:41] VITALS: BMI 28.9
[2023-06-28] VITALS (9 sets, daily range): BP systolic 120–147; BP diastolic 81–93; PULSE 70–100; RESP 14–19; TEMP 36.8–37.4; O2SAT 96–100
--- NOTE | 2023-06-28 07:24 | WPDHPUPDATE1 ---
History and Physical Update Update Date/Time: 06/28/23 07:24 History and Physical has been reviewed, including an updated exam of the patient. There are NO changes in the patient's condition. Risks, benefits, and alternatives have been discussed and questions answered. Patient agrees to proceed with procedure.
--- NOTE | 2023-06-28 09:23 | WPDANESEPPF ---
Anes - Initial Pre Proc Eval Procedure: Operation Date: 06/28/23 13:30 Proposed Procedures p Right Knee Arthroscopy - Adan Glover MD Date/Time: 06/28/23 09:23 Surgeon: Adan Glover MD Pre Op Diagnosis: right knee medial meniscus tear Patient Data Age: 62 Gender: M Height: 1.83 m Weight: 96.65 kg Allergies Allergy/AdvReac Type Severity Reaction Status Date / Time No Known Allergies Allergy Verified 06/28/23 12:21 Home Medications Medication Instructions Recorded Confirmed Type lisinopril 20 See Rx Instructions .Route 07/14/22 06/28/23 Rx mg-hydrochlorothiazide 25 mg tablet .COMPLEX #180 tabs epinephrine 0.3 mg/0.3 mL 0.3 mg (0.3 mL) IM ONCE #2 ea 08/27/22 06/28/23 Rx injection, auto-injector (EpiPen 2-Benson) albuterol sulfate 90 mcg/actuation 2 inh inhalation Q4H PRN shortness 09/07/22 06/28/23 Rx aerosol inhaler of breath or wheezing #8.5 grams rosuvastatin 10 mg tablet (Crestor) 10 mg PO DAILY #90 tabs 01/04/23 06/28/23 Rx lorazepam 1 mg tablet 1 mg PO DAILY PRN anxiety #30 tabs 05/09/23 06/28/23 Rx omeprazole 40 mg capsule,delayed See Rx Instructions .Route 06/02/23 06/28/23 Rx release .COMPLEX #90 caps buspirone 7.5 mg tablet 7.5 mg PO BID #60 tabs 06/06/23 06/28/23 Rx chlorhexidine gluconate 4 % 1 applic topical DAILY #237 mL 06/21/23 06/28/23 Rx topical liquid (Hibiclens) cholecalciferol (vitamin D3) 50 50 mcg PO DAILY 06/23/23 06/28/23 History mcg (2,000 unit) tablet ibuprofen 400 mg tablet 400 mg PO HS PRN Pain 06/23/23 06/28/23 History magnesium 250 mg tablet 250 mg PO DAILY 06/23/23 06/28/23 History multivitamin 1 tablet PO DAILY 06/23/23 06/28/23 History Patient hx anesthesia problems: none Family hx anesthesia problems: none Results Review: All pre-operative results and documents have been reviewed as part of the pre-operative evaluation. [facility] Past Medical History Medical History (Updated 06/28/23 @ 09:24 by Pito Becker DO) Actinic keratosis Anxiety Asthma BMI 29.0-29.9,adult BMI 30.0-30.9,adult Bronchitis Chondromalacia, knee Chronic instability of knee, right knee Cough Degenerative joint disease of knee History of SCC (squamous cell carcinoma) of skin HTN (hypertension) Hypomagnesemia Iliotibial band syndrome Left knee DJD Leukocytopenia Medial meniscus tear Obstructive sleep apnea Right knee injury Right knee pain Screen for colon cancer Screening for lipid disorders Screening for prostate cancer Sebaceous hyperplasia Skin cancer screening Unspecified superficial injury of right knee, initial encounter Surgical History Surgical History History of foot surgery Family History Family History Father Diabetes mellitus Mother COPD (chronic obstructive pulmonary disease) Sibling Sleep apnea Other Hypertension Social History Social History Smoking status: Never smoker Second hand tobacco smoke exposure: Yes Alcohol intake: current Drinks per week: 4 Alcohol use details: Socially Substance use: never Substance use type: does not use Lack of Transportation: No Lack of Food: Never True Current Housing: I Have Housing Concerned About Future Housing: No Difficulty Paying Gas/Electric Bills: No Difficulty Paying for Meds: No Currently Unemployed: No Education: Master's Degree or Higher Difficulty w/ Childcare or Family Care: No Living arrangements: with family Occupation/Education: retired 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
[2023-06-28] MEDS: ACETAMINOPHEN 500 MG TABLET 1000 MG PO (12:00)
[2023-06-28] MEDS: LACTATED RINGERS 1,000 ML 30 ML IV CONT (12:00)
[2023-06-28] MEDS: CELECOXIB 200 MG CAPSULE PO (12:00)
--- NOTE | 2023-06-28 13:55 | PM.DS ---
DS: Summary Time Spent with Patient Time attestation: Total time spent providing and/or coordinating discharge services: Discharge Plan Discharge Patient Disposition: Home, Self-Care Stand Alone Forms: General Discharge Instructions Discharge Medications: No Action epinephrine [EpiPen 2-Benson] 0.3 mg/0.3 mL auto-injector 0.3 mg IM ONCE Qty: 2 0RF Patient Comments: REACTION TO BUG BITE Rx Instructions: as a single dose; may repeat once multivitamin [Multi-Vitamins] Tablet 1 tablet PO DAILY magnesium 250 mg Tablet 250 mg PO DAILY cholecalciferol (vitamin D3) 50 mcg (2,000 unit) Tablet 50 mcg PO DAILY ibuprofen 400 mg Tablet 400 mg PO HS PRN (Reason: Pain) lisinopril-hydrochlorothiazide 20-25 mg tablet See Rx Instructions .ROUTE .COMPLEX Qty: 180 1RF Dose Instruction: TAKE 1 TABLET BY MOUTH TWICE A DAY Rx Instructions: TAKE 1 TABLET BY MOUTH TWICE A DAY albuterol sulfate 90 mcg/actuation HFA aerosol inhaler 2 inh inhalation Q4H PRN (Reason: shortness of breath or wheezing) Qty: 8.5 0RF rosuvastatin [Crestor] 10 mg tablet 10 mg PO DAILY Qty: 90 1RF lorazepam 1 mg tablet 1 mg PO DAILY PRN (Reason: anxiety) Qty: 30 1RF omeprazole 40 mg capsule,delayed release(DR/EC) See Rx Instructions .ROUTE .COMPLEX Qty: 90 1RF Dose Instruction: TAKE 1 CAPSULE BY MOUTH EVERY DAY FOR 90 DAYS Rx Instructions: TAKE 1 CAPSULE BY MOUTH EVERY DAY FOR 90 DAYS buspirone 7.5 mg tablet 7.5 mg PO BID Qty: 60 1RF Patient Comments: TAKES PRN FOR ANXIETY chlorhexidine gluconate [Hibiclens] 4 % liquid 1 applic topical DAILY Qty: 237 0RF Rx Instructions: cleanse operative extremity every day for 3 days prior to procedure
[2023-06-28] MEDS: ceFAZolin 2 GM/D5W 50 ML 2 GM/50 ML BAG IVPB (14:04)
[2023-06-28] MEDS: BUPivacaine HCL 0.5% 10 ML AMP 30 ML INFILTRATE (14:25)
--- NOTE | 2023-06-28 15:20 | P.OP_ITS ---
Procedure Note - Detailed Date of Procedure 06/28/23 Pre-op Diagnosis right knee medial meniscus tear Post-op Diagnosis Same Procedure Performed RIGHT KNEE SCOPE WITH PARTIAL MEDIAL MENISCECTOMY, ABRASION ARTHROPLASTY/MICROFRACTURE MEDIAL FEMORAL CONDYLE AND MAJOR SYNOVECTOMY Surgeon Adan Glover MD Anesthesia General Description of Procedure PATIENT WAS TAKEN TO THE OR. THE RIGHT LEG WAS PREPPED AND DRAPED STERILE. TROCARS WERE PLACED IN THE USUAL FASHION. CAMERA WAS INTRODUCED. THERE WAS CHONDROMALACIA TO THE PATELLA FEMORAL JOINT. THERE WAS A LOT OF SYNOVITIS IN ALL COMPARTMENTS. THE MEDIAL COMPARTMENT SHOWED CHONDROMALACIA TO THE MEDIAL FEMORAL CONDYLE. A SHAVER WAS USED TO PREFORM A CHONDROPLASTY. THERE WAS A COMPLEX MEDIAL MENISCUS TEAR. THE TEAR WAS RESECTED WITH A BITER AND A SHAVER DOWN TO A SMOOTH BASE. ABOUT 20% OF THE MENISCUS WAS REMOVED. THERE WAS A FULL THICKNESS OSTEOCHONDRAL DEFECT AT THE MAIN WEIGHT BEARING SURFACE OF THE MEDIAL FEMORAL CONDYLE. THE DEFECT MEASURED ABOUT 7X5 MM. NELA PICKS WERE USED TO PREFORM AN ABRASION ARTHROPLASTY. THERE WAS GOOD BLEEDING BONE FROM THE ARTHROPLASTY SITE. THE ACL WAS INTACT. THE LATERAL MENISCUS WAS NOT TORN. THE LATERAL COMPARTMENT HAD MINIMAL CHONDROMALACIA. CHONDROPLASTY WAS PREFORMED. A SYNOVECTOMY WAS PREFORMED WELL. THE PATELLO FEMORAL JOINT UNDERWENT CHONDROPLASTY. THERE WAS GRADE 2 CHONDROMALACIA IN PART OF THE TROCHLEA AND PART OF THE PATELLA. SYNOVECTOMY WAS PREFORMED IN THE SUPERIOR MEDIAL COMPARTME NT. THE WOUNDS WERE APPROXIMATED WITH 4.0 NYLON. STERILE DRESSING WAS APPLIED. PATIENT WAS EXTUBATED. Estimated Blood Loss 5 Complications No immediate complications Condition Stable Disposition PACU
[2023-06-28] MEDS: fentaNYL CITRATE INJ (*CRX) 100 MCG/2 ML VIAL 25 MCG IV PUSH ×3 (15:43→16:00)
== END 2023-06-28 17:16 | disposition home or self-care (01) ==
PROVIDERS: PCP Family Medicine; Visit Provider Orthopaedic Surgery
PROC: (CPT 29870; principal; 2023-06-28 13:30)
DX: S83.231A Complex tear of medial meniscus, current injury, right knee, initial encounter (principal); M94.261 Chondromalacia, right knee; M65.861 Other synovitis and tenosynovitis, right lower leg; M94.8X6 Other specified disorders of cartilage, lower leg; X58.XXXA Exposure to other specified factors, initial encounter; J45.909 Unspecified asthma, uncomplicated; I10 Essential (primary) hypertension; F41.9 Anxiety disorder, unspecified; G47.33 Obstructive sleep apnea (adult) (pediatric); Z79.51 Long term (current) use of inhaled steroids
CPT/HCPCS: 29881; 29879; 29876; A9270; J0690; J1100; J2250; J2405; J2704; J3010; J7120

== ENCOUNTER 2023-09-04 07:00 | Outpatient (NON) | payer OTHER, SELFPAY | END 2023-09-04 07:01 | disposition home or self-care (01) | LOC: ANHLAB 09-06 12:00 | PROVIDERS: PCP Family Medicine; Visit Provider Nurse Practitioner | DX: D48.5 Neoplasm of uncertain behavior of skin (principal) | CPT/HCPCS: 88305 ==